=== PATIENT | male | born 1970 | race Caucasian/White ===

== ENCOUNTER 2018-03-28 15:26 | Emergency (ER) | payer SELFPAY ==
[2018-03-28] MEDS ORDERED: predniSONE 20 MG TAB ONE (15:53)
[2018-03-28] MEDS ORDERED: Azithromycin 250 MG TAB ONE (15:53)
--- NOTE | 2018-03-28 16:14 | RAD ---
PORTABLE CHEST ONE VIEW: 03/28/18 at 3:36 p.m. HISTORY: Cough. FINDINGS: The heart size is normal. The lungs are expanded without focal areas of consolidation, pneumothoraces or pleural effusions. IMPRESSION: No radiographic evidence of acute cardiopulmonary process. POS: [facility]
== END 2018-03-28 16:35 | disposition home or self-care (01) ==
LOC: MADERS 15:26
DX: J20.9 Acute bronchitis, unspecified (principal); F17.210 Nicotine dependence, cigarettes, uncomplicated
CPT/HCPCS: 71045; J7506; J7620

== ENCOUNTER 2023-10-07 20:06 | Emergency (ER) | payer OTHER, SELFPAY ==
[2023-10-07] MEDS ORDERED: Ipratropium/Albuterol 3 ML NEB ONE (20:49)
[2023-10-07] MEDS ORDERED: methylPREDNISolone Sod Succ/PF 125 MG/2 ML VIAL ONE (21:04)
[2023-10-07 21:06] LABS: #Basophils 0.1 thou/uL (0.0-0.2); #Eosinphils 0.3 thou/uL (0.0-0.7); #Lymphocytes 2.4 thou/uL (1.20-3.40); #Monocytes 0.4 thou/uL (0.11-0.59); #Neutrophils 4.8 thou/uL (1.40-6.50); %Basophils 0.9 % (0.0-1.0); %Eosinophils 3.7 % (0.0-10.0); %Lymphocytes 30.1 % (21.0-51.0); %Monocytes 5.2 % (0.0-10.0); %Neutrophils 60.1 % (42.0-75.0); Hematocrit 44.9 % (42.0-52.0); Hemoglobin 13.8 g/dL (14.0-18.0); Mean Corpuscular HGB CONC 30.7 g/dL (32.0-36.0); Mean Corpuscular Hemoglobin 29.1 pg (27.0-31.0); Mean Corpuscular Volume 94.8 fl (78.0-98.0); Mean Platelet Volume 6.3 fL (7.4-10.4); Platelet Count 259 10x3/uL (130-400); RBC Distribution Width 11.9 % (11.5-14.5); Red Blood Cell (RBC) Count 4.73 mill/uL (4.70-6.10); White Blood Cell (WBC) Count 7.9 10x3/uL (4.8-10.8)
[2023-10-07] MEDS ORDERED: Lactated Ringer's 1,000 ML ONE (21:06)
[2023-10-07 21:26] LABS: ALT (SGPT) 44 U/L (8-55); AST (SGOT) 22 U/L (5-34); Albumin 3.8 g/dL (3.5-5.0); Alkaline Phosphatase 90 U/L (40-110); Anion Gap 15 mmol/L (10-20); BUN (Urea Nitrogen) 19 mg/dL (8.4-25.7); Bilirubin, Total 0.4 mg/dL (0.2-1.2); Calc. Creatinine Clearance 0 mL/min (70-130); Carbon Dioxide 20 mmol/L (22-29); Chloride 112 mmol/L (98-107); Estimated GFR 85; Globulin 2.8 g/dL (2.4-3.5); Glucose 118 mg/dL (70-105); Potassium 4.1 mmol/L (3.5-5.1); Protein, Total 6.6 g/dL (6.0-8.3); Sodium 143 mmol/L (136-145)
[2023-10-07] MEDS ORDERED: cefTRIAXone (ROCEPHIN) 1 GM VIAL ONE (21:38)
[2023-10-07] MEDS ORDERED: Sodium Chloride 0.9% 100 ML ONE (21:38)
[2023-10-07 21:46] LABS: Influenza A by NAA Not Detected (NotDetected); Influenza B by NAA Not Detected (NotDetected); SARS-CoV-2 NAA Rapid Test Not Detected (NotDetected)
[2023-10-07 21:51] LABS: Troponin I 0.037 ng/mL (< 0.028)
[2023-10-07] MEDS ORDERED: Furosemide 40 MG (4 mL) VIAL ONE (23:09)
[2023-10-07 23:26] LABS: Troponin I 0.062 ng/mL (< 0.028)
[2023-10-07] MEDS ORDERED: Enoxaparin 80 MG (0.8 mL) SYRINGE ONE (23:29)
[2023-10-07] MEDS ORDERED: Metoprolol Tartrate 5 MG (5 mL) VIAL ONE (23:40)
== END 2023-10-07 23:55 | disposition home or self-care (01) ==
LOC: MADERS 20:06
DX: I21.4 Non-ST elevation (NSTEMI) myocardial infarction (principal); I11.0 Hypertensive heart disease with heart failure; I50.9 Heart failure, unspecified; F17.210 Nicotine dependence, cigarettes, uncomplicated
CPT/HCPCS: 71045; 80053; 84484; 85025; 85379; 87081; 87430; 93005; 94760; 96365; 96375; J0696; J1650; J1940; J2930; J3490; J7120; J7620

== ENCOUNTER 2025-06-13 00:35 | Emergency (ER) | payer OTHER ==
[2025-06-13] MEDS ORDERED: Furosemide 40 MG (4 mL) VIAL ONE (00:55)
[2025-06-13 01:00] LABS: #Basophils 0.1 thou/uL (0.0-0.2); #Eosinophils 0.1 thou/uL (0.0-0.7); #Lymphocytes 3.0 thou/uL (1.20-3.40); #Monocytes 0.6 thou/uL (0.11-0.59); #Neutrophils 5.8 thou/uL (1.40-6.50); %Basophils 1.1 % (0.0-1.0); %Eosinophils 1.2 % (0.0-10.0); %Lymphocytes 31.3 % (21.0-51.0); %Monocytes 6.0 % (0.0-10.0); %Neutrophils 60.3 % (42.0-75.0); Hematocrit 46.6 % (42.0-52.0); Hemoglobin 15.0 g/dL (14.0-18.0); Mean Corpuscular Hemoglobin 31.9 pg (27.0-31.0); Mean Corpuscular Volume 99.5 fl (78.0-98.0); Platelet Count 237 10x3/uL (130-400); Red Blood Cell (RBC) Count 4.69 mill/uL (4.70-6.10); White Blood Cell (WBC) Count 9.6 10x3/uL (4.8-10.8)
[2025-06-13] MEDS ORDERED: Acetaminophen 500 MG TAB ONE (01:09)
[2025-06-13 01:15] LABS: ALT (SGPT) 17 U/L (Less than 45); AST (SGOT) 29 U/L (11-34); Albumin 4.4 g/dL (3.1-4.5); Alkaline Phosphatase 77 U/L (40-110); Anion Gap 17 mmol/L (10-20); BUN (Urea Nitrogen) 19 mg/dL (8.4-25.7); Bilirubin, Total 1.0 mg/dL (0.3-1.2); Calc. Creatinine Clearance 0 mL/min (70-130); Calcium 9.1 mg/dL (7.8-10.44); Carbon Dioxide 22 mmol/L (22-29); Chloride 103 mmol/L (98-107); Globulin 3.1 g/dL (2.4-3.5); Glucose 109 mg/dL (70-105); Potassium 4.5 mmol/L (3.5-5.1); Sodium 137 mmol/L (136-145)
[2025-06-13 01:17] LABS: Troponin I 0.066 ng/mL (< 0.028)
[2025-06-13] MEDS ORDERED: Aspirin Chewable 81 MG TAB ONE (01:32)
== END 2025-06-13 03:06 | disposition short-term general hospital (02) ==
LOC: MADERS 00:35
DX: I11.0 Hypertensive heart disease with heart failure (principal); I50.9 Heart failure, unspecified; F17.210 Nicotine dependence, cigarettes, uncomplicated; Z79.899 Other long term (current) drug therapy
CPT/HCPCS: 71045; 80053; 83880; 84484; 85025; 93005; 94760; 96374; J1940